=== PATIENT | male | born 1950 | race Caucasian/White ===

== ENCOUNTER 2023-09-25 17:43 | Emergency (ER) | payer MEDICARE, OTHER ==
[2023-09-25 18:43] LABS: #Basophils 0.1 thou/uL (0.0-0.2); #Eosinphils 0.4 thou/uL (0.0-0.7); #Lymphocytes 2.4 thou/uL (1.20-3.40); #Monocytes 0.9 thou/uL (0.11-0.59); #Neutrophils 4.5 thou/uL (1.40-6.50); %Basophils 0.7 % (0.0-1.0); %Eosinophils 4.9 % (0.0-10.0); %Lymphocytes 29.4 % (21.0-51.0); %Monocytes 10.3 % (0.0-10.0); %Neutrophils 54.7 % (42.0-75.0); Hematocrit 41.3 % (42.0-52.0); Hemoglobin 13.5 g/dL (14.0-18.0); Mean Corpuscular HGB CONC 32.7 g/dL (32.0-36.0); Mean Corpuscular Hemoglobin 32.1 pg (27.0-31.0); Mean Corpuscular Volume 98.4 fl (78.0-98.0); Mean Platelet Volume 4.8 fL (7.4-10.4); Platelet Count 250 10x3/uL (130-400); RBC Distribution Width 11.9 % (11.5-14.5); White Blood Cell (WBC) Count 8.3 10x3/uL (4.8-10.8)
[2023-09-25 18:53] LABS: INR-International Normal Ratio 1.1; PTT 30.2 sec (22.9-36.1)
[2023-09-25 18:56] LABS: D-Dimer Test 0.34 mcg/mL (0.27-0.43)
[2023-09-25 18:57] LABS: ALT (SGPT) 35 U/L (8-55); AST (SGOT) 31 U/L (5-34); Albumin 3.6 g/dL (3.4-4.8); Alkaline Phosphatase 104 U/L (40-110); Anion Gap 15 mmol/L (10-20); BUN (Urea Nitrogen) 22 mg/dL (8.4-25.7); Bilirubin, Total 0.5 mg/dL (0.2-1.2); CK (CPK) 78 U/L (30-200); Calc. Creatinine Clearance 0 mL/min (70-130); Carbon Dioxide 22 mmol/L (23-31); Chloride 101 mmol/L (98-107); Estimated GFR 24; Globulin 3.5 g/dL (2.4-3.5); Glucose 118 mg/dL (83-110); Potassium 3.2 mmol/L (3.5-5.1); Protein, Total 7.1 g/dL (5.8-8.1); Sodium 135 mmol/L (136-145)
[2023-09-25 18:58] LABS: Troponin I 0.016 ng/mL (< 0.028)
[2023-09-25] MEDS ORDERED: Aspirin Chewable 81 MG TAB ONE (19:19)
== END 2023-09-25 20:44 | disposition short-term general hospital (02) ==
LOC: EDBD 17:43 → NAV ERS 17:43
DX: R42 Dizziness and giddiness (principal); I12.9 Hypertensive chronic kidney disease with stage 1 through stage 4 chronic kidney disease, or unspecified chronic kidney disease; N18.30 Chronic kidney disease, stage 3 unspecified; Z79.899 Other long term (current) drug therapy
CPT/HCPCS: 36416; 70450; 72125; 80053; 82550; 83880; 84484; 85025; 85379; 85610; 85730; 36415-59

== ENCOUNTER 2023-10-10 10:29 | Emergency (ER) | payer MEDICARE ==
[2023-10-10 11:59] LABS: SARS-CoV-2 E Target Positive; SARS-CoV-2 N2 Target Positive; SARS-CoV-2 NAA Rapid Test DETECTED (NotDetected); SARS-CoV-2 RdRP gene Positive
== END 2023-10-10 12:25 | disposition home or self-care (01) ==
LOC: NAV ERS 10:29
DX: U07.1 COVID-19 (principal); F17.210 Nicotine dependence, cigarettes, uncomplicated; I12.9 Hypertensive chronic kidney disease with stage 1 through stage 4 chronic kidney disease, or unspecified chronic kidney disease; N18.30 Chronic kidney disease, stage 3 unspecified; Z79.899 Other long term (current) drug therapy
CPT/HCPCS: 71046; U0002

== ENCOUNTER 2025-01-29 10:13 | Emergency (ER) | payer MEDICARE, BC | END 2025-01-29 11:20 | disposition home or self-care (01) | LOC: NAV ERS 10:13 | DX: J18.9 Pneumonia, unspecified organism (principal); I12.9 Hypertensive chronic kidney disease with stage 1 through stage 4 chronic kidney disease, or unspecified chronic kidney disease; N18.30 Chronic kidney disease, stage 3 unspecified; I25.10 Atherosclerotic heart disease of native coronary artery without angina pectoris; F17.210 Nicotine dependence, cigarettes, uncomplicated; Z95.0 Presence of cardiac pacemaker; Z79.899 Other long term (current) drug therapy; Z79.01 Long term (current) use of anticoagulants | CPT/HCPCS: 71046 ==